=== PATIENT | female | born 2000 | race Caucasian/White ===

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

== ENCOUNTER 2023-02-05 17:44 | Outpatient (CLI) | payer OTHER ==
--- NOTE | 2023-02-05 18:22 | XRAY Report ---
PROCEDURE: Ankle 3 View LT INDICATIONS: LEFT ANKLE SPRAIN TECHNIQUE: 3 views of the ankle were acquired. COMPARISON: 08/14/2018, 08/08/2018 FINDINGS: Bones: No fractures or dislocations. Ankle mortise is normally aligned. No suspicious bony lesions . The talar dome demonstrates an unremarkable appearance. Soft tissues: No tibiotalar joint effusion. Achilles tendon appears normal. IMPRESSION: No significant plain film abnormality is seen. If it would be helpful for clinical management decision making, please consider a dedicated, schedule d ankle MRI for further evaluation (assuming that there is no contraindication). Reviewed by: Juan Bui MD on 02/05/2023 5:20 PM LB Approved by: Juan Bui MD on 02/05/2023 5:20 PM LB Station ID: [id number]
== END 2023-02-05 23:59 | disposition home or self-care (01) ==
LOC: DI.S 17:44
PROVIDERS: ATTEND Physician Assistant Medical
DX: S93.492A Sprain of other ligament of left ankle, initial encounter (principal)

== ENCOUNTER 2023-07-24 08:00 | Outpatient (CLI) | payer OTHER | END 2023-07-24 23:59 | disposition home or self-care (01) | LOC: LAB 08:00 | PROVIDERS: ATTEND Physician Assistant | DX: N39.0 Urinary tract infection, site not specified (principal) | CPT/HCPCS: 87086 ==

== ENCOUNTER 2023-08-24 15:42 | Outpatient (CLI) | payer OTHER | END 2023-08-24 23:59 | disposition critical access hospital (66) | LOC: EMS 15:42 | DX: R51.9 Headache, unspecified (principal); M54.2 Cervicalgia; M79.605 Pain in left leg; V49.40XA Driver injured in collision with unspecified motor vehicles in traffic accident, initial encounter; Y92.414 Local residential or business street as the place of occurrence of the external cause | CPT/HCPCS: A0425; A0429 ==

== ENCOUNTER 2023-08-24 16:14 | Emergency (ER) | payer OTHER ==
[2023-08-24] MEDS ORDERED: KETOROLAC 30 MG/ML VIAL IM STA (16:30)
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
[2023-08-24 16:41] VITALS: O2SAT 100
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
--- OUTSIDE RECORDS SUMMARY | 2023-08-24 17:47 | EXTERNAL MEDICAL SUMMARY RPT | Continuity of Care Document ---
Author Name Unknown Address [address] [place] [address] Phone Organization [facility] Address [address] [place] [address] Phone Care Team Providers Care Campground Cleaning Attendant Name Role Phone Unavailable Unavailable Unavailable Sabrina Marin Unavailable Unavailable Medications date description facility 2023-07-24 00:00 etonogestrel [facility] [place] 2023-07-25 00:00 etonogestrel [facility] [place] 2023-07-26 00:00 etonogestrel [facility] [place] 2023-07-24 00:00 etonogestrel [facility] [place] 2023-07-25 00:00 etonogestrel [facility] [place] 2023-07-26 00:00 etonogestrel [facility] [place] 2023-07-24 00:00 nitrofurantoin monohyd/m-cryst [facility] [place] 2023-07-24 00:00 nitrofurantoin monohyd/m-cryst [facility] [place] 2023-07-24 00:00 etonogestrel [facility] [place] 2023-07-25 00:00 etonogestrel [facility] [place] 2023-07-26 00:00 etonogestrel [facility] [place] 2023-07-24 00:00 etonogestrel [facility] [place] 2023-07-25 00:00 etonogestrel [facility] [place] 2023-07-26 00:00 etonogestrel [facility] [place] 2023-07-24 00:00 nitrofurantoin monohyd/m-cryst [facility] [place] 2023-07-24 00:00 nitrofurantoin monohyd/m-cryst [facility] [place] Problems date description facility 2023-07-24 00:00 Urinary tract infectious diseas e [facility] [place] 2023-07-24 00:00 Urinary tract infect ion, site not specified [facility] [place] Procedures date description facility 2023-07-24 00:00 Visit Code Hold [facility] [place] 2023-07-24 00:00 POC URINALYSIS DIP [facility] [place] 2023-07-24 00:00 Urine C&S [facility] [place] Results/Labs test date facility value unit notes Social History date description facility 2023-07-24 00:00 Never smoker [facility] [place] Vital Signs date measurement value units 2023-07-24 00:00 BMI 48.54 kg/m2 2023-07-24 00:00 BP_diastolic 75 mmHg 2023-07-24 00:00 BP_systolic 120 mmHg 2023-07-24 00:00 heart_rate 51 /min 2023-07-24 00:00 height_metric 132.08 cm 2023-07-24 00:00 height_standard 52 in 2023-07-24 00:00 respiration_rate 17 /min 2023-07-24 00:00 weight_metric 84.37 kg 2023-07-24 00:00 weight_standard 186 lb
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
[2023-08-24 19:54] VITALS: BP 133/81
== END 2023-08-24 19:52 | disposition home or self-care (01) ==
LOC: EDUNIT# → ED 16:14
DX: Z04.1 Encounter for examination and observation following transport accident (principal); R51.9 Headache, unspecified; M54.2 Cervicalgia; M79.672 Pain in left foot; M25.572 Pain in left ankle and joints of left foot
CPT/HCPCS: 99283